=== PATIENT | male | born 1985 | race Asian ===

== ENCOUNTER 2022-11-04 02:26 | Day surgery (SDC) | payer BC, SELFPAY ==
[2022-10-26 09:59] VITALS: BMI 25.2
--- NOTE | 2022-10-26 10:10 | PC.NURSE ---
Report to the Outpatient Waiting Room, entrance under the green pavilion located off [facility], at time 10:00 on date 11/04/22. Planned Procedure Time: 12:00. Time changes happen often and if your time is changed the preop area will call you the afternoon before. - You and your visitor will be asked to self-screen and do not enter if you have any COVID symptoms. - Only one visitor is requested with a max of two and NO children visitors are allowed at this time. - The patient visitor may be requested to leave or wait in car when not with patient due to distancing restrictions. - A mask is optional within the hospital at this time. Patients may have clear liquids (water, carbonated beverages, clear teas, apple juice) until 3 hours prior to surgery (9:00) with a maximum of 20 ounces. - No food from midnight until time of surgery Take the following medications with a SIP of water the morning of surgery: NONE DO NOT STOP ANY OF YOUR OTHER PRESCRIPTION MEDICATIONS PRIOR TO SURGERY EXCEPT THE FOLLOWING Medications to discontinue per physician: N/A Date to take last dose: N/A Please no make-up, nail kiswahili, hairspray, perfume, deodorant, or body powder the day of surgery. No jewelry (including any body piercings) or valuables the day of surgery, leave them at home. Please take a shower or bath the night before, or the morning of, surgery with an antibacterial soap. Wear comfortable, loose fitting clothing. - Jewelry must be removed prior to entering the operating room. Rings and piercings that are not removed may be cut off. - The hospital will not accept responsibility for valuables. - Please leave all valuables, including medications, at home the day of surgery. If you are going home after surgery, a licensed driver trainer must drive you home. - NO public transportation without another adult if you receive anesthesia. - We recommend that an adult stay with you for 24 hours following discharge. - We also recommend that you do not drive, make important decision, drink alcoholic beverages, or take any drugs that were not prescribed by your health care provider for at least 24 hours after your discharge time. Follow any additional instructions given to you from your surgeon. If you or anyone in your household have experienced Covid symptoms in the past week, please notify your surgeon or the nurse liaison at the phone number below for possible testing. Telephone instructions given to and asked if any additional questions and then verbalized understanding. Patient advised to call surgeon office or pre surgery nurse liaison [phone] if any additional questions.
[2022-11-04] VITALS (7 sets, daily range): BP systolic 90–108; BP diastolic 43–73; PULSE 42–60; RESP 13–16; TEMP 36.1–36.6; O2SAT 97–100
[2022-11-04] MEDS: LACTATED RINGERS 1,000 ML 30 ML IV CONT ×2 (10:21→13:01)
[2022-11-04] MEDS: ACETAMINOPHEN 500 MG TABLET 1000 MG PO (10:22)
[2022-11-04] MEDS: KETOROLAC 15 MG/ML VIAL (*BKC) IV PUSH (10:24)
--- NOTE | 2022-11-04 10:58 | WPDHPUPDATE1 ---
History and Physical Update Update Date/Time: 11/04/22 10:58 History and Physical has been reviewed, including an updated exam of the patient. There are NO changes in the patient's condition. Risks, benefits, and alternatives have been discussed and questions answered. Patient agrees to proceed with procedure.
--- NOTE | 2022-11-04 11:05 | P.PNAN_ITS ---
Anes - Initial Pre Proc Eval Procedure: Operation Date: 11/04/22 12:00 Proposed Procedures p Rectal Exam Under Anesthesia, Hemorrhoidectomy - Maggie Moreno MD Date/Time: 11/04/22 11:05 Surgeon: Maggie Moreno MD Pre Op Diagnosis: Ext Hemorrhoids Patient Data Age: 37 Gender: M Height: 1.68 m Weight: 68 kg Last Vital Signs Temp 36.6 C 11/04/22 10:02 Pulse 60 11/04/22 10:02 Resp 16 11/04/22 10:02 BP 105/60 11/04/22 10:02 Pulse Ox 100 11/04/22 10:02 O2 Del Method Room Air 11/04/22 10:02 Allergies Allergy/AdvReac Type Severity Reaction Status Date / Time beets Allergy Intermediate Unknown Uncoded 10/26/22 09:57 Home Medications Medication Instructions Recorded Confirmed Type amitriptyline 25 mg tablet 25 mg PO QHS 10/21/22 10/26/22 History hydrocortisone 2.5 % topical cream 1 applic topical BID PRN Rash 10/21/22 10/26/22 History Patient hx anesthesia problems: none Family hx anesthesia problems: none Results Review: All pre-operative results and documents have been reviewed as part of the pre- operative evaluation. [facility] Past Medical History Medical History Insomnia Migraines Surgical History Surgical History History of hemorrhoidectomy ~2014 done in [place]. S/P excision of lipoma Family History Family History Mother Breast cancer Social History Social History Smoking status: Never smoker Alcohol intake: never Substance use: never Substance use type: does not use Living arrangements: with family Spiritual care concerns: No Anes - Eval Final PreProcedure Day of Procedure 11/04/22 11:05 Patient weight: normal Heart: regular rate and rhythm Lungs: clear to auscultation Neurological: alert and oriented Last oral intake: >/= 8 hours ASA classification: I Emergent: no Anesthetic plan: proceed Anesthesia type and monitoring: general LMA and standard monitoring Results Review: All pre-operative results and documents have been reviewed as part of the pre- operative evaluation. Informed Consent: The patient's anesthetic plan and its attendant risks and benefits were discussed with the patient/family/POA. Questions were solicited and answers provided to the satisfaction of the patient/family/POA.
[2022-11-04] MEDS: ceFAZolin 2 GM/D5W 50 ML 2 GM/50 ML BAG IVPB (11:58)
[2022-11-04] MEDS: LIDOCAINE HCL 2% JELLY 5 ML TUBE 1 APPLIC MUCOUS MEM (12:30)
--- NOTE | 2022-11-04 12:50 | W.PM.PROC2 ---
Procedure Note - Detailed Date of Procedure 11/04/22 Pre-op Diagnosis Ext Hemorrhoids Post-op Diagnosis Same Procedure Performed Exam under anesthesia, external and internal hemorrhoidectomy involving left lateral and right anterior positions Surgeon Maggie Moreno MD Anesthesia General Indications 37 y/o M c multiple external and internal hemorrhoids c frequent flares causing pain, bleeding refractory to conservative measures. Findings multiple external and internal hemorrhoids predominately in L lateral and R anterior Description of Procedure The patient was taken to the operating room and placed in the modified lithotomy position. After adequate induction of general anesthesia, the patient was prepped and draped in the normal sterile fashion. A time-out was then done to verify the patient's identity, as well as the procedure being performed. I began by doing a digital exam. There was noted to be multiple external hemorrhoids, as well as two internal hemorrhoids were noted. At this point, a bilateral pudendal block was done. I then used the lone Star retractor to further evaluate the anal canal as well as rectum, other than the hemorrhoids no other pathology was noted. I then began excising the external hemorrhoids using the hand-held LigaSure device. The hemorrhoids were noted to be in the left lateral and right anterior positions. Multiple hemorrhoids were excised using the LigaSure. I then excised the two internal hemorrhoids. These were noted to be actively oozing. The specimens will be sent to pathology for further review. Hemostasis was noted at all excision sites. I then placed a piece of Gelfoam covered with lidocaine jelly into the rectal vault. The patient tolerated the procedure and was extubated in the operating room postop. He will be transferred to the recovery room in stable condition. Implants Gelfoam covered with lidocaine jelly in the rectal vault Estimated Blood Loss 10 Drains No Packing Yes Pathology Yes Complications No immediate complications Condition Stable Disposition PACU [facility] Billing Surgery - Charge Forward: Surgery Billing
[2022-11-04] MEDS: fentaNYL CITRATE INJ (*CRX) 100 MCG/2 ML VIAL 25 MCG IV PUSH ×2 (12:58→13:04)
[2022-11-04] MEDS: oxyCODONE HCL (*CRX) 5 MG TAB IR PO (13:53)
--- NOTE | 2022-11-04 14:20 | SUR.PHASEII ---
Patient is ready to go and just waiting for ride.
== END 2022-11-04 14:25 | disposition home or self-care (01) ==
PROVIDERS: PCP Emergency Medicine; Visit Provider Surgery
PROC: (CPT 46260; principal; 2022-11-04 12:00)
DX: K64.4 Residual hemorrhoidal skin tags (principal); K64.8 Other hemorrhoids
CPT/HCPCS: 46260; 88304; A9270; J0690; J1100; J1885; J2250; J2405; J2704; J3010; J7120

== ENCOUNTER 2023-01-20 06:49 | Day surgery (SDC) | payer BC, SELFPAY ==
[2023-01-08 10:59] VITALS: BMI 24.9
[2023-01-20 11:19] VITALS: BP 117/74; PULSE 53; RESP 15; TEMP 36.2; O2SAT 99
--- NOTE | 2023-01-20 11:20 | SUR.PREOP ---
[employer] service used to obtain consent - mVisum- Yue [id number].
[2023-01-20] MEDS: LACTATED RINGERS 1,000 ML 150 ML IV CONT (11:28)
--- NOTE | 2023-01-20 12:01 | P.PNAN_ITS ---
Anes - Initial Pre Proc Eval Procedure: Operation Date: 01/20/23 12:30 Proposed Procedures p Colonoscopy - Jmiy Garcia MD Date/Time: 01/20/23 12:01 Surgeon: Jimy Garcia MD Pre Op Diagnosis: Rectal Bleeding Patient Data Age: 37 Gender: M Height: 1.68 m Weight: 67.8 kg Last Vital Signs Temp 97.2 F L 01/20/23 11:19 Pulse 53 L 01/20/23 11:19 Resp 15 01/20/23 11:19 BP 117/74 01/20/23 11:19 Pulse Ox 99 01/20/23 11:19 O2 Del Method Room Air 01/20/23 11:19 Allergies Allergy/AdvReac Type Severity Reaction Status Date / Time beets Allergy Intermediate Unknown Uncoded 01/20/23 11:18 Home Medications Medication Instructions Recorded Confirmed Type No Home Medications 01/06/23 01/08/23 History Patient hx anesthesia problems: none Family hx anesthesia problems: none Results Review: All pre-operative results and documents have been reviewed as part of the pre- operative evaluation. [facility] Past Medical History Medical History Insomnia Migraines Surgical History Surgical History History of hemorrhoidectomy ~2014 done in [place]. Hx of hemorrhoidectomy REUA, hemorrhoidectomy on 11/04/22 S/P excision of lipoma Family History Family History Mother Breast cancer Social History Social History Smoking status: Never smoker Alcohol intake: never Substance use: never Substance use type: does not use Living arrangements: with family Spiritual care concerns: No Anes - Eval Final PreProcedure Day of Procedure 01/20/23 12:01 Patient weight: normal Heart: regular rate and rhythm Lungs: clear to auscultation Airway: Mallampati scale class II Neurological: alert and oriented Last oral intake: >/= 8 hours ASA classification: II Emergent: no Anesthetic plan: proceed Anesthesia type and monitoring: general GIVS and standard monitoring Results Review: All pre-operative results and documents have been reviewed as part of the pre- operative evaluation. Informed Consent: The patient's anesthetic plan and its attendant risks and benefits were discussed with the patient/family/POA. Questions were solicited and answers provided to the satisfaction of the patient/family/POA.
--- NOTE | 2023-01-20 12:19 | PM.HPGS ---
History of Present Illness History of Present Illness Consent: Risks, benefits, and alternatives have been discussed and questions answered. Patient agrees to proceed with procedure. Chief complaint: Rectal Bleeding Narrative: Temo Manzo is a 37 year old male with intermittent rectal bleeding, had hemorrhoid surgery. Never had colonoscopy Review of Systems Constitutional: Constitutional: Denies headache(s) and Denies weakness Eyes: Eyes: Denies blurry vision ENT: Reports Normal hearing present, Denies headache(s) and Denies neck pain Cardiovascular: Cardiovascular: Denies chest pain and Denies dyspnea Respiratory: Respiratory: Denies dyspnea Gastrointestinal: Gastrointestinal: Reports no additional gastrointestinal complaints Genitourinary: Genitourinary: Denies dysuria Musculoskeletal: Musculoskeletal: Denies neck pain Integumentary/Breasts: Skin/Breast: Denies dry skin Neurologic: Reports Normal hearing present, Denies headache(s) and Denies weakness Psychiatric: Psychiatric: Denies anxiety Endocrine: Endocrine: Denies change in body appearance Hematologic/Lymphatic: Hematologic/Lymphatic: Denies easy bleeding Allergic/Immunologic: Allergic/Immunologic: Denies urticaria PMFSH Past Medical History Medical History Insomnia Migraines Surgical History Surgical History History of hemorrhoidectomy ~2014 done in [place]. Hx of hemorrhoidectomy REUA, hemorrhoidectomy on 11/04/22 S/P excision of lipoma Family History Family History Mother Breast cancer Social History Social History Smoking status: Never smoker Alcohol intake: never Substance use: never Substance use type: does not use Living arrangements: with family Spiritual care concerns: No Meds Home Medications and Allergies Home Medications Medication Instructions Recorded Confirmed Type No Home Medications 01/06/23 01/08/23 History Allergies Allergy/AdvReac Type Severity Reaction Status Date / Time beets Allergy Intermediate Unknown Uncoded 01/20/23 11:18 Vital Signs Vital Signs - 24 hr 01/20/23 11:19 Temperature 97.2 F L Pulse Rate 53 L Respiratory Rate 15 Blood Pressure 117/74 Pulse Oximetry 99 Oxygen Delivery Room Air Exam Const: General: comfortable and no acute distress HENMT: Face/Nose/Sinus: Normal nares present Eyes: General: appearance normal, both eyes and all related structures Neck: Neck: no JVD Resp: Auscultation: clear to auscultation bilaterally Cardio: Rate: regular rate Rhythm: regular rhythm GI: Inspection: non-distended GI Palp: Yes Soft to palpation Skin: General skin exam: normal color Neuro: General: gait normal Speech: normal speech Extrem: General: normal to inspection Psych: Mental Status: mental status grossly normal Assessment and Plan Assessment and plan (1) Rectal bleeding: Code(s): K62.5 - Hemorrhage of anus and rectum Status: Acute Assessment and Plan: colonoscopy
--- NOTE | 2023-01-20 12:26 | SUR.PREOP ---
Two translators were used- the first call was dropped. William [id number] and Hali [id number] were used for anesthesia consent.
[2023-01-20 12:37] VITALS: BP 103/58; PULSE 53; RESP 24; O2SAT 99
[2023-01-20 12:47] VITALS: BP 106/74; PULSE 51; RESP 14; O2SAT 100
[2023-01-20 12:57] VITALS: BP 105/74; PULSE 50; RESP 20; O2SAT 100
== END 2023-01-20 13:05 | disposition home or self-care (01) ==
PROVIDERS: PCP Emergency Medicine; Visit Provider Internal Medicine Gastroenterology
PROC: 0DJD8ZZ Inspection of Lower Intestinal Tract, Via Natural or Artificial Opening Endoscopic (ICD-10-PCS; CPT 45378; principal; 2023-01-20 12:30)
DX: K64.8 Other hemorrhoids (principal)
CPT/HCPCS: 45378; J2704; J7120